=== PATIENT | female | born 1985 | race Two or more races ===

== ENCOUNTER → 2020-09-20 | Emergency (ER) | payer OTHER ==
[~2020-09-20] VITALS: Ht 152.4 cm; Wt 56.7 kg
[~2020-09-20] MED LIST: ATIVAN2 M1; PROTONIX40 MG; TIGAN250 MG PO; WELLBUTRIN SR150 MG; ZOFRAN4 MG PO
== END | disposition home or self-care (01) ==
LOC: ER 12:02
DX: K64.8 Other hemorrhoids (principal)

== ENCOUNTER 2023-10-11 11:03 | Outpatient (CLI) | payer OTHER | END 2023-10-11 11:19 | disposition home or self-care (01) | LOC: SONOGRAMA 11:03 | PROVIDERS: ATTEND Internal Medicine Cardiovascular Disease | DX: M12.9 Arthropathy, unspecified (principal) ==